=== PATIENT | female | born 1965 | race Caucasian/White ===

== ENCOUNTER 2020-01-06 13:38 | Emergency (ER) | payer OTHER ==
[~2020-01-06] VITALS: Ht 160 cm; Wt 57.6 kg
[2020-01-06] MEDS ORDERED: PROZAC20 MG PO (14:02)
[2020-01-06] MEDS ORDERED: TIZANIDINE4 MG/1 TA1 PO (14:03)
[2020-01-06] MEDS ORDERED: ESTRADIOL1 EAC3 TRANSDERM (14:03)
[2020-01-06 14:31] LABS: ABSOLUTE NEUTROPHILS 7.6 thou/uL (1.4-8.2); BASOPHILS 0.5 % (0.0-2.0); EOSINOPHILS 2.1 % (0.0-3.0); HEMATOCRIT 42.8 % (37.0-47.0); HEMOGLOBIN 15.1 gm/dL (12.0-15.0); LYMPHOCYTES 16.3 % (24.0-44.0); MCH 31.7 pg (26.0-34.0); MCHC 35.2 g/dL (28.0-37.0); MONOCYTES 6.6 % (1.0-8.0); PLATELET COUNT 261 thou/uL (150-400); POLYS 74.5 % (36.0-66.0); RBC 4.76 mil/uL (4.20-5.00); RDW 13.6 % (10.5-14.5); WBC 10.2 thou/uL (4.0-11.0)
[2020-01-06 14:32] LABS: URINE BLOOD NEGATIVE (Negative); URINE CLARITY CLEAR; URINE COLOR YELLOW; URINE GLUCOSE-RANDOM* NEGATIVE (Negative); URINE KETONES 2+ (Negative); URINE LEUKOCYTES-REFLEX NEGATIVE (Negative); URINE NITRITE-REFLEX NEGATIVE (Negative); URINE PROTEIN (DIPSTICK) NEGATIVE (Negative); URINE SPECIFIC GRAVITY 1.015 (1.005-1.035)
[2020-01-06 14:34] LABS: ICTOTEST (BILI CONFIRMATORY) Negative (Negative); URINE BILIRUBIN NEGATIVE (Negative)
[2020-01-06 14:38] LABS: AMP/METHAMP Negative (Negative); BARBITURATES Negative (Negative); BENZODIAZEPINES Negative (Negative); COCAINE Negative (Negative); METHADONE Negative (Negative); OPIATES Negative (Negative); PCP Negative (Negative)
[2020-01-06 14:46] LABS: ANION GAP 11 mmol/L (7-16); BUN 10 mg/dL (7-18); CALCIUM 9.1 mg/dL (8.5-10.1); CHLORIDE 99 mmol/L (98-107); CO2 27 mmol/L (21-32); CREATININE 0.5 mg/dL (0.6-1.0); GLUCOSE 80 mg/dL (74-106); SODIUM 137 mmol/L (136-145)
[2020-01-06 14:55] LABS: LIPASE 78 U/L (73-393); SGOT 16 U/L (15-37); SGPT 24 U/L (30-65); TOTAL BILIRUBIN 0.8 mg/dL (0.2-1.0); TROPONIN-I <0.06 ng/mL (<0.06)
[2020-01-06] MEDS ORDERED: AUGMENTIN 875-1 EACH PO (16:05)
[2020-01-06] MEDS ORDERED: FLAGYL500 M1 PO (16:05)
[2020-01-06] MEDS ORDERED: TRAMADOL 50 MG50 MG PO (16:05)
--- NOTE | 2020-01-06 16:50 | EKG ---
[facility] [place] [address] ELECTROCARDIOGRAM REPORT Name: BETSEY FONG Room #: REG [facility]..#: [id number] Admission: 01/06/20 Attend Phys: Discharge: Date of : 63 Report #: [id number] THIS REPORT FOR: cc: Parisa Hartmann MD, Lisa A. MD Lundgren,Yobany Brock MD [facility] ~ THIS REPORT FOR: //name// [facility] ED Test Date: 2020-01-06 Test Time: 14:34:00 Pat Name: BETSEY FONG Department: Room: Gender: F Past Due Accounts Clerk: [facility] : 1965 Requested By: Last Partida Order Number: [id number] MD: Yobany Navarro Measurements Intervals [place] Rate: 69 P: 63 MI: 122 QRS: 82 QRSD: 99 T: 41 QT: 419 QTc: 449 Interpretive Statements Sinus rhythm Normal tracing No previous ECG available for comparison Electronically Signed On 01-06-2020 16:50:07 CDT by Yobany Navarro [email or web address] <ELECTRONICALLY SIGNED> By: Yobany Navarro MD, [facility] 01/06/20 1650 1434 1434 Yobany Navarro MD, [facility] /EPI
[2020-01-06 17:00] VITALS: BP 119/63
== END 2020-01-06 17:05 | disposition home or self-care (01) ==
LOC: ER 13:38
PROVIDERS: Emergency Medicine
DX: K52.9 Noninfective gastroenteritis and colitis, unspecified (principal); Z79.899 Other long term (current) drug therapy; Z90.710 Acquired absence of both cervix and uterus